=== PATIENT | male | born 1975 | race Caucasian/White ===

== ENCOUNTER → 2016-05-12 | Outpatient (CLI) | payer OTHER ==
--- NOTE | 2016-05-12 17:31 | DX ---
Left shoulder 3 views History: Pain for 7 months with no known injury, M 25.511, M 25.12. Comparison: None available. Findings: No fracture is identified. Alignment is normal. There is mild acromioclavicular arthrosis. The acromioclavicular and coracoclavicular relationships are normal. The visible chest is normal. Impression: Mild acromioclavicular arthrosis.
--- NOTE | 2016-05-12 17:40 | DX ---
Right Shoulder, 3 Views History: Pain for 7 months with no known injury . M25.511. Comparison: None available. Findings: No fracture is identified. Alignment is normal. There is mild acromioclavicular arthrosis. The acromioclavicular and coracoclavicular relationships are normal. The visible chest is normal. Impression: Mild acromioclavicular arthrosis.
== END ==
LOC: FIMAGING 11:33
PROVIDERS: ATTEND Family Medicine
DX: M25.511 Pain in right shoulder (principal); M25.512 Pain in left shoulder

== ENCOUNTER → 2016-12-21 | Outpatient (CLI) | payer OTHER | LOC: FIMAGING 11:45 | PROVIDERS: ATTEND Physician Assistant | DX: H81.93 Unspecified disorder of vestibular function, bilateral (principal) ==